=== PATIENT | male | born 1980 | race Caucasian/White ===

== ENCOUNTER 2016-10-30 17:30 | Emergency (ER) | payer MEDICAID ==
[~2016-10-30] VITALS: Ht 185.4 cm; Wt 72.6 kg
[2016-10-30 19:35] VITALS: BP 146/91
[2016-10-30 19:45] LABS: Basophils # (auto) 0 uL; Basophils % (auto) 0.1 % (0.0-2.0); Eosinophils # (auto) 0.1 uL; Eosinophils % (auto) 0.9 % (0.0-7.0); Hematocrit 36.1 % (41.0-53.0); Hemoglobin 12.1 g/dL (13.5-17.5); Lymphocytes # (auto) 1.9 uL; Lymphocytes % (auto) 11.8 % (10.0-50.0); Mean Corpuscular Hemoglobin 27.8 pg (28.0-32.0); Mean Corpuscular Hgb Conc. 33.5 g/dL (32.0-36.0); Mean Platelet Volume 7.7 fL (7.4-10.4); Monocytes # (auto) 0.6 uL; Neutrophils # (auto) 13.1 uL; Neutrophils % (auto) 83.2 % (37.0-80.0); Platelet Count (auto) 513 10^3/uL (140-450); Red Cell Distribution Width 14.6 % (11.6-16.0); White Blood Cell 15.8 10^3/uL (4.4-10.8)
[2016-10-30 19:47] LABS: Albumin 4.1 g/dL (3.4-5.0); BUN/Creatinine Ratio 24.5; Calcium 9.2 mg/dL (8.5-10.1); Potassium 3.9 mmol/L (3.5-5.1)
[2016-10-30 19:49] LABS: Bilirubin, Total 0.5 mg/dL (0.2-1.0); Total Protein 8.4 g/dL (6.4-8.2)
[2016-10-30] MEDS ORDERED: KETOROLAC TROMETH 60MG/2ML VIAL IM ONE (20:30)
[2016-10-30] MEDS ORDERED: cefTRIAXone SOD 1,000 MG VL IM ONE (20:30)
== END 2016-10-30 21:53 | disposition home or self-care (01) ==
LOC: ER 17:33
DX: L03.031 Cellulitis of right toe (principal); D64.9 Anemia, unspecified
CPT/HCPCS: 36415; 73630; 80053; 83605; 85025; 87040; 96372; 99285; J0696; J1885

== ENCOUNTER 2017-03-27 21:04 | Emergency (ER) | payer MEDICAID ==
[~2017-03-27] VITALS: Ht 175.3 cm; Wt 72.6 kg
[2017-03-27 21:05] VITALS: BP 130/70
== END 2017-03-27 21:25 | disposition left against medical advice (07) ==
LOC: EDBD 21:04 → ER 21:11
DX: T40.1X1A Poisoning by heroin, accidental (unintentional), initial encounter (principal); Y92.89 Other specified places as the place of occurrence of the external cause; Z53.21 Procedure and treatment not carried out due to patient leaving prior to being seen by health care provider

== ENCOUNTER 2019-07-30 12:19 | Emergency (ER) | payer SELFPAY ==
[~2019-07-30] VITALS: Ht 185.4 cm; Wt 81.6 kg
[2019-07-30 13:19] LABS: Basophils # (auto) 0 uL; Basophils % (auto) 0.2 % (0.0-2.0); Eosinophils # (auto) 0 uL; Eosinophils % (auto) 0.1 % (0.0-7.0); Hemoglobin 9.6 g/dL (13.5-17.5)
[2019-07-30 13:22] LABS: Lymphocytes # (auto) 1.2 uL; Lymphocytes % (auto) 8.1 % (10.0-50.0); Mean Corpuscular Hemoglobin 23.9 pg (28.0-32.0); Mean Corpuscular Hgb Conc. 31.9 g/dL (32.0-36.0); Mean Corpuscular Volume 74.8 fL (80.0-100.0); Monocytes % (auto) 13.3 % (0.0-12.0); Neutrophils # (auto) 11.7 uL; Neutrophils % (auto) 78.3 % (37.0-80.0); Platelet Count (auto) 378 10^3/uL (140-450); Red Blood Cells 4.01 10^6/uL (4.5-5.90)
[2019-07-30 13:34] LABS: Albumin 4.1 g/dL (3.4-5.0); Anion Gap 9 (5-15); Blood Urea Nitrogen 43 mg/dL (7-18); Carbon Dioxide 27 mmol/L (21-32); Chloride 94 mmol/L (98-107); Potassium 3.7 mmol/L (3.5-5.1); Salicylate < 1.7 mg/dL (2.8-20.0); Sodium 130 mmol/L (136-145)
[2019-07-30 13:39] LABS: Alanine Aminotransferase 142 U/L (16-61); Alkaline Phosphatase 88 U/L (45-117); Aspartate Aminotransferase 59 U/L (15-37); Bilirubin, Total 0.5 mg/dL (0.2-1.0); Blood Alcohol < 3.0 mg/dL (0-5); GFR African American 52 mL/min; GFR Non-African American 43 mL/min; Glucose 123 mg/dL (74-106); Total Protein 8.5 g/dL (6.4-8.2)
[2019-07-30 13:46] LABS: Red Cell Distribution Width 20.7 % (11.8-14.3)
[2019-07-30 13:48] LABS: Acetaminophen < 2.0 ug/mL (10-30)
[2019-07-30] MEDS ORDERED: SODIUM CHLORIDE 0.9% 1,000 ML IVB ONE (16:39)
[2019-07-30 18:07] LABS: Blood Alcohol < 3.0 mg/dL (0-5)
[2019-07-30 19:44] LABS: Urine Bacteria NONE SEEN /hpf (None Seen); Urine Blood Negative /uL (Negative); Urine Specific Gravity 1.015 (1.001-1.035); Urine WBC <1 /hpf (0 - 3)
[2019-07-30 20:01] LABS: Alcohol, Urine < 3.0 mg/dL (0-5); Amphetamine Screen, Urine POSITIVE (NEGATIVE); Barbiturate Scree,Urine NEGATIVE (NEGATIVE); Benzodiazephine Screen, Urine NEGATIVE (NEGATIVE); Cannabinoid Screen, Urine POSITIVE (NEGATIVE); Cocaine Screen, Urine NEGATIVE (NEGATIVE); Phencyclidine Screen, Urine NEGATIVE (NEGATIVE)
[2019-07-30 20:08] LABS: Opiate Scree,Urine POSITIVE (NEGATIVE)
[2019-07-31 02:07] VITALS: BP 99/54
== END 2019-07-31 03:48 | disposition home or self-care (01) ==
LOC: EDBD 12:19 → ER 12:21
DX: G92 Toxic encephalopathy (principal); D50.9 Iron deficiency anemia, unspecified; F15.10 Other stimulant abuse, uncomplicated; R94.5 Abnormal results of liver function studies; F12.10 Cannabis abuse, uncomplicated; F14.10 Cocaine abuse, uncomplicated
CPT/HCPCS: 36415; 70450; 80053; 80307; 80320; 80329; 81001; 83735; 85025; 93005

== ENCOUNTER → 2019-08-04 | Emergency (ER) | payer SELFPAY ==
[~2019-08-04] VITALS: Ht 182.9 cm; Wt 77.1 kg
[2019-08-04 20:00] VITALS: BP 131/77
== END | disposition left against medical advice (07) ==
LOC: EDUNIT# 19:41 → ER 19:54 → EDBD 19:54
DX: R41.82 Altered mental status, unspecified (principal); F12.10 Cannabis abuse, uncomplicated; F15.10 Other stimulant abuse, uncomplicated; F17.210 Nicotine dependence, cigarettes, uncomplicated; Z59.0 Homelessness; Z53.29 Procedure and treatment not carried out because of patient's decision for other reasons

== ENCOUNTER → 2019-08-23 | Emergency (ER) | payer SELFPAY ==
[~2019-08-23] VITALS: Ht 182.9 cm; Wt 76.7 kg
[2019-08-23 04:55] VITALS: BP 133/83
[2019-08-23 05:47] LABS: Urine Bacteria FEW /hpf (None Seen); Urine Blood Negative /uL (Negative); Urine Hyaline Cast MOD /lpf (0 - 2); Urine Mucus FEW (None Seen); Urine Specific Gravity 1.028 (1.001-1.035); Urine Sperm PRESENT /hpf (None Seen); Urine WBC 9 /hpf (0 - 3)
[2019-08-23 05:52] LABS: Salicylate 1.9 mg/dL (2.8-20.0)
[2019-08-23 05:54] LABS: Basophils # (auto) 0 10 ^3/uL (0-0.2); Basophils % (auto) 0.3 % (0.0-2.0); Hematocrit 31.3 % (41.0-53.0); Hemoglobin 9.8 g/dL (13.5-17.5); INR 1.01 (0.9-1.15); Lymphocytes # (auto) 1.5 10 ^3/uL (0.4-5.4); Lymphocytes % (auto) 10.8 % (10.0-50.0); Mean Corpuscular Hemoglobin 22.7 pg (28.0-32.0); Mean Corpuscular Hgb Conc. 31.2 g/dL (32.0-36.0); Mean Corpuscular Volume 72.8 fL (80.0-100.0); Monocytes % (auto) 6.9 % (0.0-12.0); Partial Thromboplastin Time 22.3 sec (23.64-32.05)
[2019-08-23 05:55] LABS: Chloride 106 mmol/L (98-107); Eosinophils # (auto) 0.2 10 ^3/uL (0-0.8); Eosinophils % (auto) 1.1 % (0.0-7.0); Neutrophils # (auto) 11.3 10 ^3/uL (1.6-8.6); Neutrophils % (auto) 80.9 % (37.0-80.0); Platelet Count (auto) 660 10^3/uL (140-450); Potassium 3.6 mmol/L (3.5-5.1); Red Blood Cells 4.29 10^6/uL (4.5-5.90); Sodium 135 mmol/L (136-145)
[2019-08-23 05:59] LABS: Acetaminophen < 2.0 ug/mL (10-30)
[2019-08-23 06:00] LABS: Red Cell Distribution Width 20.5 % (11.8-14.3)
[2019-08-23 06:05] LABS: Amphetamine Screen, Urine POSITIVE (NEGATIVE); Barbiturate Scree,Urine NEGATIVE (NEGATIVE); Benzodiazephine Screen, Urine NEGATIVE (NEGATIVE); Cocaine Screen, Urine NEGATIVE (NEGATIVE)
[2019-08-23 06:06] LABS: Alanine Aminotransferase 77 U/L (16-61); Albumin 3.7 g/dL (3.4-5.0); Alkaline Phosphatase 75 U/L (45-117); Anion Gap 9 (5-15); Aspartate Aminotransferase 42 U/L (15-37); BUN/Creatinine Ratio 12.6; Bilirubin, Total 0.3 mg/dL (0.2-1.0); Blood Urea Nitrogen 13 mg/dL (7-18); Calcium 8.9 mg/dL (8.5-10.1); Carbon Dioxide 20 mmol/L (21-32); GFR African American 104 mL/min; GFR Non-African American 86 mL/min; Glucose 156 mg/dL (74-106); Total Protein 8.2 g/dL (6.4-8.2)
[2019-08-23 06:14] LABS: Alcohol, Urine < 3.0 mg/dL (0-5); Cannabinoid Screen, Urine POSITIVE (NEGATIVE); Opiate Scree,Urine POSITIVE (NEGATIVE); Phencyclidine Screen, Urine NEGATIVE (NEGATIVE)
== END | disposition left against medical advice (07) ==
LOC: EDUNIT# 04:21 → ER 04:31 → EDBD 04:31
DX: R41.82 Altered mental status, unspecified (principal); F41.9 Anxiety disorder, unspecified; F17.210 Nicotine dependence, cigarettes, uncomplicated; F12.10 Cannabis abuse, uncomplicated; F15.10 Other stimulant abuse, uncomplicated; F14.10 Cocaine abuse, uncomplicated; Z59.0 Homelessness
CPT/HCPCS: 36415; 71045; 80053; 80307; 80329; 81001; 83880; 84484; 85025; 85610; 85730; 93005

== ENCOUNTER 2019-10-13 20:01 | Emergency (ER) | payer SELFPAY ==
[~2019-10-13] VITALS: Ht 182.9 cm; Wt 79.4 kg
[2019-10-13 23:09] VITALS: BP 143/93
== END 2019-10-13 23:29 | disposition home or self-care (01) ==
LOC: ER 20:01
DX: L02.01 Cutaneous abscess of face (principal); F17.210 Nicotine dependence, cigarettes, uncomplicated
CPT/HCPCS: 87040

== ENCOUNTER 2022-02-16 12:52 | Emergency (ER) | payer MEDICAID ==
[~2022-02-16] VITALS: Ht 182.9 cm; Wt 77.3 kg
[2022-02-16] MEDS ORDERED: CLINDAMYCIN 900MG IV 50 ML IV ONE (14:30)
[2022-02-16] MEDS ORDERED: cefTRIAXone 1GM/50ML D5W 50 ML IV ONE (14:30)
[2022-02-16] MEDS ORDERED: SODIUM CHLORIDE 0.9% 1,000 ML IV ONE (14:30)
[2022-02-16] MEDS ORDERED: TETANUS-DIPTH-ACEL PERTUSSIS 0.5ML SYR Tdap IM ONE (14:30)
[2022-02-16 15:23] VITALS: BP 135/78
[2022-02-16] MEDS ORDERED: CEPH-510 PO (16:14)
[2022-02-16] MEDS ORDERED: CLIN300C8 PO (16:14)
[2022-02-16] MEDS ORDERED: ACET-1158 PO (16:14)
== END 2022-02-16 16:54 | disposition home or self-care (01) ==
LOC: ER 12:52
DX: L03.114 Cellulitis of left upper limb (principal); F15.10 Other stimulant abuse, uncomplicated; F17.210 Nicotine dependence, cigarettes, uncomplicated; X58.XXXA Exposure to other specified factors, initial encounter; Y93.89 Activity, other specified; Y92.89 Other specified places as the place of occurrence of the external cause; Y99.8 Other external cause status
CPT/HCPCS: 73130; 90471; 90715; 96365; 96368; 99284; J0696; J3490; J7030

== ENCOUNTER 2022-07-26 21:25 | Inpatient (IN) | payer MEDICAID ==
[~2022-07-26] VITALS: Ht 180.3 cm; Wt 81.7 kg
[~2022-07-26 21:25] MED LIST: ACET-1158 PO; CEPH-510 PO; CLIN300C8 PO
[2022-07-26 22:26] LABS: Basophils # (auto) 0.1 10 ^3/uL (0-0.2); Basophils % (auto) 0.4 % (0.0-2.0); Eosinophils # (auto) 0 10 ^3/uL (0-0.8); Eosinophils % (auto) 0.2 % (0.0-7.0); Hematocrit 41.1 % (41.0-53.0); Lymphocytes # (auto) 1.5 10 ^3/uL (0.4-5.4); Lymphocytes % (auto) 7.3 % (10.0-50.0); Mean Corpuscular Hemoglobin 28.9 pg (28.0-32.0); Mean Corpuscular Hgb Conc. 33.9 g/dL (32.0-36.0); Mean Corpuscular Volume 85.1 fL (80.0-100.0); Monocytes # (auto) 1.1 10 ^3/uL (0-1.3); Monocytes % (auto) 5.2 % (0.0-12.0); Neutrophils # (auto) 17.5 10 ^3/uL (1.6-8.6); Neutrophils % (auto) 86.9 % (37.0-80.0); Red Blood Cells 4.83 10^6/uL (4.5-5.90); Red Cell Distribution Width 15.3 % (11.8-14.3); White Blood Cell 20.2 10^3/uL (4.4-10.8)
[2022-07-26 22:47] LABS: Anion Gap 1 (5-15); Blood Urea Nitrogen 21 mg/dL (7-18); Calcium 9.1 mg/dL (8.5-10.1); Carbon Dioxide 28 mmol/L (21-32); Chloride 107 mmol/L (98-107); Glucose 138 mg/dL (74-106); Magnesium 2.5 mg/dL (1.6-2.6); Sodium 136 mmol/L (136-145)
[2022-07-26 22:50] LABS: Acetaminophen < 2.0 ug/mL (10-30); BUN/Creatinine Ratio 16.3; Blood Alcohol < 3.0 mg/dL (0-5); GFR African American 79 mL/min; GFR Non-African American 65 mL/min; Salicylate < 1.7 mg/dL (2.8-20.0)
[2022-07-26 23:01] LABS: Potassium 6.4 mmol/L (3.5-5.1)
[2022-07-26 23:02] LABS: INR 0.94 (0.9-1.15); Partial Thromboplastin Time 25.5 sec (24.6-33.4)
[2022-07-26 23:04] LABS: Alanine Aminotransferase 49 U/L (16-61); Alkaline Phosphatase 71 U/L (45-117); Aspartate Aminotransferase 22 U/L (15-37); Bilirubin, Total 0.2 mg/dL (0.2-1.0); Total Protein 8.2 g/dL (6.4-8.2)
[2022-07-27] MEDS ORDERED: CALCIUM GLUC 1,000mg/50ml-NS 50 ML IV ONE (00:45)
[2022-07-27] MEDS ORDERED: SODIUM CHLORIDE 0.9% 1,000 ML IV ONE (00:45)
[2022-07-27] MEDS ORDERED: DEXTROSE (50%) 50ML SYRG IV ONE (00:45)
[2022-07-27] MEDS ORDERED: InsuLIN REG 1unit/0.01ml Soln (100units/ml) IV ONE (00:45)
[2022-07-27 05:25] LABS: Urine Blood Negative /uL (Negative); Urine Specific Gravity 1.021 (1.001-1.035)
[2022-07-27 05:42] LABS: Alcohol, Urine < 3.0 mg/dL (0-10); Amphetamine Screen, Urine POSITIVE (NEGATIVE); Barbiturate Scree,Urine NEGATIVE (NEGATIVE); Benzodiazephine Screen, Urine NEGATIVE (NEGATIVE); Cannabinoid Screen, Urine POSITIVE (NEGATIVE); Cocaine Screen, Urine NEGATIVE (NEGATIVE); Opiate Scree,Urine NEGATIVE (NEGATIVE)
[2022-07-27 05:50] LABS: Phencyclidine Screen, Urine NEGATIVE (NEGATIVE)
[2022-07-27 10:35] LABS: Basophils # (auto) 0.1 10 ^3/uL (0-0.2); Eosinophils # (auto) 0.1 10 ^3/uL (0-0.8); Hematocrit 35.6 % (41.0-53.0); Hemoglobin 11.9 g/dL (13.5-17.5); Lymphocytes # (auto) 2.4 10 ^3/uL (0.4-5.4); Mean Corpuscular Hemoglobin 28.1 pg (28.0-32.0); Mean Corpuscular Hgb Conc. 33.3 g/dL (32.0-36.0); Mean Corpuscular Volume 84.4 fL (80.0-100.0); Monocytes # (auto) 0.6 10 ^3/uL (0-1.3); Monocytes % (auto) 6.1 % (0.0-12.0); Neutrophils # (auto) 6.7 10 ^3/uL (1.6-8.6); Neutrophils % (auto) 67.9 % (37.0-80.0); Nucleated Red Blood Cells % 0.1 %; Red Blood Cells 4.22 10^6/uL (4.5-5.90); Red Cell Distribution Width 15.4 % (11.8-14.3); White Blood Cell 9.8 10^3/uL (4.4-10.8)
[2022-07-27] MEDS ORDERED: MORPHINE SULFATE INJ 2 MG/ml SYRG IV PRN (10:45)
[2022-07-27] MEDS ORDERED: ONDANSETRON HCL 4 MG/2 ML VIAL IV PRN (10:45)
[2022-07-27] MEDS ORDERED: NITROGLYCERIN 0.4 MG SL TAB SL PRN (10:45)
[2022-07-27 11:19] LABS: Potassium 4.2 mmol/L (3.5-5.1)
[2022-07-27 11:25] LABS: Albumin 3.3 g/dL (3.4-5.0); BUN/Creatinine Ratio 24.4; Bilirubin, Total 0.4 mg/dL (0.2-1.0); Calcium 8.4 mg/dL (8.5-10.1); Total Protein 6.4 g/dL (6.4-8.2)
[2022-07-27] MEDS: SODIUM CHLORIDE 0.9% 1,000 ML IV SCH ×2 (11:30→18:10)
[2022-07-27] MEDS ORDERED: NICOTINE 7MG/24HR TOPICAL PATCH TD ONE (11:45)
[2022-07-27] MEDS ORDERED: PANTOPRAZOLE 40 MG/10 ML VIAL INJ IV ONE (11:45)
[2022-07-27 12:20] LABS: Cholesterol 95 mg/dL (< 200); HDL Cholesterol 65 mg/dL (40-59); LDL Cholesterol 33 mg/dL (< 100); Triglycerides 21 mg/dL (< 150)
[2022-07-27] MEDS ORDERED: ACETAMINOPHEN 500 MG TAB PO ONE (19:45)
[2022-07-28] MEDS: SODIUM CHLORIDE 0.9% 1,000 ML IV SCH ×2 (00:46→07:43)
[2022-07-28 07:31] LABS: Basophils # (auto) 0.1 10 ^3/uL (0-0.2); Basophils % (auto) 0.9 % (0.0-2.0); Eosinophils # (auto) 0.1 10 ^3/uL (0-0.8); Eosinophils % (auto) 1.6 % (0.0-7.0); Hematocrit 35.7 % (41.0-53.0); Hemoglobin 12.3 g/dL (13.5-17.5); Lymphocytes # (auto) 2.5 10 ^3/uL (0.4-5.4); Lymphocytes % (auto) 30.7 % (10.0-50.0); Mean Corpuscular Hemoglobin 28.7 pg (28.0-32.0); Mean Corpuscular Hgb Conc. 34.5 g/dL (32.0-36.0); Mean Corpuscular Volume 83.2 fL (80.0-100.0); Monocytes # (auto) 0.6 10 ^3/uL (0-1.3); Neutrophils # (auto) 4.9 10 ^3/uL (1.6-8.6); Neutrophils % (auto) 59.8 % (37.0-80.0); Nucleated Red Blood Cells % 0.1 %; Red Blood Cells 4.29 10^6/uL (4.5-5.90); White Blood Cell 8.1 10^3/uL (4.4-10.8)
[2022-07-28 07:32] LABS: Calcium 8.7 mg/dL (8.5-10.1); Potassium 4.7 mmol/L (3.5-5.1)
[2022-07-28 07:38] LABS: Albumin 3.4 g/dL (3.4-5.0); BUN/Creatinine Ratio 18.3; Bilirubin, Total 0.5 mg/dL (0.2-1.0); Total Protein 6.5 g/dL (6.4-8.2)
[2022-07-28] MEDS ORDERED: PANTOPRAZOLE 40 MG/10 ML VIAL INJ IV SCH (10:00)
[2022-07-28] MEDS ORDERED: NICOTINE 7MG/24HR TOPICAL PATCH TD SCH (10:00)
[2022-07-28] MEDS ORDERED: ENOXAPARIN SOD 40 MG/0.4 ML SYRINGE SC SCH (10:00)
[2022-07-28 13:20] VITALS: BP 133/88
== END 2022-07-28 18:30 | disposition home or self-care (01) | DRG 812 ==
LOC: EDUNIT# 21:25 → EDBD 21:25 → ER 21:32 → TELE 07-27 10:40 → TELE-E-ADS 07-28 12:06
PROVIDERS: ADMIT Registered Nurse; ATTEND Hospitalist
DX: T40.711A Poisoning by cannabis, accidental (unintentional), initial encounter (principal); N17.9 Acute kidney failure, unspecified; D72.829 Elevated white blood cell count, unspecified; Z20.822 Contact with and (suspected) exposure to COVID-19; E87.5 Hyperkalemia; F15.10 Other stimulant abuse, uncomplicated; T40.411A Poisoning by fentanyl or fentanyl analogs, accidental (unintentional), initial encounter; Y92.89 Other specified places as the place of occurrence of the external cause; Z72.0 Tobacco use; Z71.6 Tobacco abuse counseling
CPT/HCPCS: 36415; 71045; 80053; 80061; 80307; 80320; 80329; 81003; 83036; 83735; 84443; 84484; 85025; 85610; 85730; 87426; 87804; 93005; 93306; 96365; 96375; 99291; C9113; G0378; J1815

== ENCOUNTER 2024-04-06 10:21 | Inpatient (IN) | payer MEDICAID ==
[~2024-04-06] VITALS: Ht 182.9 cm; Wt 72.8 kg
--- NOTE | 2024-04-06 10:49 | ED.PDOC ---
History of Present Illness(SKN HPI Comments HPI: Poor Historian. 43 y.o male presents to the ED for an evaluation of right hand pain associated with swelling and redness that started 2 days ago. Patient reports pain is loca bianca to the dorsal side of his right hand and states some pus discharge when it first presented. Patient reports swelling has increased today and is unable to take his watch off his right wrist. Patient placed Neosporin on the wound site today. He denies any fever, chills, bloody discharge, possible foreign object. Patient reports it was a cut before it started to swell up but is unsure where he cut himself. Patient admits to methamphetamine and tobacco use. Vital signs: BP: 127/92 HR: 80 Temp: SPO2: 100% RA RR: 17 Patient denies any allergies Past medical history: Methamphetamine, alcohol and tobacco (cigarette) use. Past surgical history: Denies REVIEW OF SYSTEMS: CONSTITUTIONAL: Denies acute: fever, diaphoresis, chills, generalized weakness. HEAD: Denies acute: headache, photophobia Eyes: Denies acute: Double vision, vision loss, eye pain, eye discharge. EARS: Denies acute: tinnitus, hearing loss, ear discharge, ear pain, THROAT: Denies acute: sore throat, swelling, difficulty swallowing , pain with swallowing, change in voice. NECK: Denies acute: neck pain, neck swelling, stiff neck. HEART: Denies acute : chest pain, palpitations, LUNGS: Denies acute: SOB, wheezing, cough, hemoptysis ABDOMEN: Denies acute: abdominal pain, Nausea, Vomiting, diarrhea, melena , hematemesis, hematochezia SKIN: Denies acute: itchiness. EXTREMITIES: Denies acute: calf pain, numbness, tingling, weakness, Denies acute: Low back pain. Neuro: Denies acute: focal neurological deficit, motor or sensory focal neurological deficit, tremors, seizure like activity, confusion, dizziness, change in mental status, loss of bowel or bladder function, cauda equina like symptoms. : Denies acute: dysuria, hematuria, flank pain, increase in urinary frequency. PSYCH: Denies acute: hallucination, suicidal ideation, homicidal ideation. PHYSICAL EXAM: General: no acute distress, awake and alert. Head: normocephalic, atraumatic. Neck: supple, trachea is midline, no swelling. Throat: Normal phonation. Eyes:, no erythema, no purulent discharge, no proptosis, no icterus. Heart: regular rate, regular rhythm, no significant murmur appreciated. Lungs: no apparent respiratory distress, Able to speak in full sentences. No wheezing, no rhonchi, no crackles. No stridors Clear to auscultation bilaterally. Abdomen: non tender to palpation, non distended, soft, no guarding, no rebound, + bowel sounds. Neuro: Awake, Alert, oriented to name, self, situation, follows commands GCS=15. Speech is normal. Skin: no petechia, no purpura, no cyanosis, non-pale, not jaundice. Lower extremities: --no - Pitting edema no deformity, no focal swelling, no calf TTP. Makes eye contact. moves all four extremities. Face: no apparent facial droop. Ambulating in the ED independently. Evaluation of the right hand reveals right hand swelling and erythema and tenderness to palpation of the dorsum of the right hand and the erythema extends up towards his wrist. Radial pulses palpable. Patient able to oppose all his digits with his thumb. Patient denies any pain on the palmar side of his hand. Patient is neurovascularly intact in the affected extremity. Time Seen by MD: 10:41 Primary Care Provider: CORBY History of Present Illness: Nurses Notes, Medications, Allergies Allergies: Coded Allergies: NO KNOWN ALLERGIES (Unverified , 11/10/11) Home Meds No Active Prescriptions or Reported Meds Information Source: Patient Mode of Arrival: Ambulatory Severity: Moderate Timing: Days (2) Past Medical History PAST MEDICAL HISTORY: Denies Surgical History: Denies all surgeries Family History Family History: Reviewed,noncontributory to illness Social History Smoker: Cigarettes, Less Than 1 Pack/Day Alcohol: Occasionally Drugs: Methamphetamine Lives In: Home Was a procedure done? Was a procedure done?: No Differential Diagnosis (INTG) Differential Diagnosis: Abscess, Cellulitis, Erythema multiforme, Erysipelas, Gangrene, Molluscum contagiosum, Osteomyelitis Differential Diagnosis: Contusion (Necrotizing fasciitis,), Hematoma, Neurov ascular Injury Differential Diagnosis: Puncture Wound X-Ray, Labs, Meds, VS Vital Signs Date Time Temp Pulse Resp B/P (MAP) Pulse Ox O2 Delivery O2 Flow Rate FiO2 04/06/24 14:00 68 18 122/81 (95) 99 04/06/24 13:22 132/80 04/06/24 13:00 63 18 132/80 (97) 99 04/06/24 12:38 74 18 99 Room Air* 0 21 04/06/24 12:00 59 18 118/64 (82) 99 04/06/24 10:41 97.6 80 17 127/92 (104) 100 04/06/24 10:33 98.7 68 18 120/54 (76) 99 98.7 Lab Test 04/06/24 10:55 Range/Units White Blood Count 12.1 H 4.4-10.8 10^3/uL Red Blood Count 4.69 4.5-5.90 10^6/uL Hemoglobin 13.6 13.5-17.5 g/dL Hematocrit 40.5 L 41.0-53.0 % Mean Corpuscular Volume 86.3 80.0-100.0 fL Mean Corpuscular Hemoglobin 29.0 28.0-32.0 pg Mean Corpuscular Hemoglobin Concent 33.6 32.0-36.0 g/dL Red Cell Distribution Width 13.9 11.8-14.3 % Platelet Count 379 140-450 10^3/uL Mean Platelet Volume 7.1 6.9-10.8 fL Neutrophils (%) (Auto) 76.9 37.0-80.0 % Lymphocytes (%) (Auto) 13.0 10.0-50.0 % Monocytes (%) (Auto) 8.1 0.0-12.0 % Eosinophils (%) (Auto) 1.7 0.0-7.0 % Basophils (%) (Auto) 0.3 0.0-2.0 % Neutrophils # (Auto) 9.3 H 1.6-8.6 10 ^3/uL Lymphocytes # (Auto) 1.6 0.4-5.4 10 ^3/uL Monocytes # (Auto) 1.0 0-1.3 10 ^3/uL Eosinophils # (Auto) 0.2 0-0.8 10 ^3/uL Basophils # (Auto) 0 0-0.2 10 ^3/uL Nucleated Red Blood Cells 0.0 % Erythrocyte Sedimentation Rate 15 0-20 mm/hr Sodium Level 136 136-145 mmol/L Potassium Level 4.0 3.5-5.1 mmol/L Chloride Level 102 98-107 mmol/L Carbon Dioxide Level 31 20-31 mmol/L Anion Gap 3 L 5-15 Blood Urea Nitrogen 9 9-23 mg/dL Creatinine 0.79 0.700-1.30 mg/dL Glomerular Filtration Rate Calc 113 >90 mL/min BUN/Creatinine Ratio 11.4 10.0-20.0 Serum Glucose 74 74-106 mg/dL Lactic Acid Level 0.6 0.4-2.0 mmol/L Calcium Level 9.6 8.7-10.4 mg/dL Total Bilirubin 0.5 0.2-1.0 mg/dL Aspartate Amino Transferase (AST) 19 13-40 U/L Alanine Aminotransferase (ALT) 31 7-40 U/L Alkaline Phosphatase 78 46-116 U/L C-Reactive Protein High Sensitivity 3.23 H <1.0 mg/dL Total Protein 7.5 5.7-8.2 g/dL Albumin 4.5 3.2-4.8 g/dL Current Medications Medications (Trade) Dose Ordered Sig/Becky Route Start Time Stop Time Status Last Admin Piperacillin Sod/ Tazobactam Sod 100 ml @ 33.333 mls/ hr ONCE ONCE IV 04/06/24 11:00 04/06/24 13:59 DC 04/06/24 12:21 Vancomycin HCl 300 ml @ 200 mls/hr ONCE ONCE IV 04/06/24 11:15 04/06/24 12:44 DC 04/06/24 12:21 Fentanyl Citrate 100 mcg ONCE ONCE IV 04/06/24 13:15 04/06/24 13:16 CO 04/06/24 13:22 [place] [id number] Ph: [phone] DIAGNOSTIC IMAGING Diagnostic Imaging Report : [id number] Signed PATIENT: CARMEN REYES ACCT: [id number] UNIT: [id number] : 1980 LOC: ER ROOM / BED: / AGE / SEX: 43 / M ADM STATUS: REG ER SERVICE 1047 ORDERING PHYSICIAN: LEROY FLETCHER DO PROCEDURE(s): RUDVT - Rt Upper DVT REASON: hand swelling ORDER NUMBER(s): [id number], ACCESSION NUMBER(s): [id number] Right UPPER EXTREMITY VENOUS DOPPLER CLINICAL HISTORY: hand swelling TECHNIQUE: Upper extremity venous Doppler study was performed. Comparison: None FINDINGS: Right internal jugular, subclavian, axillary, brachial, basilic, cephalic, radial and ulnar veins appear patent with normal augmentation, phasicity, compressibility and color-flow. IMPRESSION: 1. No sonographic evidence of DVT in the right upper extremity. HS:Y ATED BY: BAL GONZALEZ MD DICTATED DATE/TIME: 04/06/241408 SIGNED BY: BAL GONZALEZ MD SIGNED DATE/TIME: 04/06/241408 CC: [place] [id number] Ph: [phone] DIAGNOSTIC IMAGING Diagnostic Imaging Report : [id number] Signed PATIENT: CARMEN REYES ACCT: [id number] UNIT: [id number] : 1980 LOC: ER ROOM / BED: / AGE / SEX: 43 / M ADM STATUS: REG ER SERVICE 1102 ORDERING PHYSICIAN: LEROY FLETCHER DO PROCEDURE(s): RUECT - RT UPPER EXTREMITY WITH CONT REASON: HAND SWELLING R/O ABCESS ORDER NUMBER(s): [id number], ACCESSION NUMBER(s): [id number] INDICATION: 43 years old, Male; HAND SWELLING R/O ABCESS. COMPARISON: None TECHNIQUE: CT of the right upper extremity performed with intravenous contrast using 100 mL Omnipaque. Coronal and sagittal reformatted images are submitted. CONTRAST: None Radiation Dose Information: CTDI volume is 7.75 mGy. Dose-length product is 376.08 mGy*cm FINDINGS: No evidence of acute fracture or dislocation. No evidence of cortical destruction or periosteal reaction. Joint spaces are maintained. Benign cysts in the hamate and the triquetrum. Dorsal soft tissue swelling. No fluid collection. IMPRESSION: 1. Diffuse soft tissue swelling, which may reflect cellulitis. No fluid collection. 2. No CT evidence of osteomyelitis. All CT scans at this medical facility are performed using dose modulation techniques as appropriate to a performed exam including the following: Automated exposure control was utilized; adjustment of the MA and/or KV according to patient size; and use of iterative reconstruction technique. ATED BY: ERIC JACOBSEN MD DICTATED DATE/TIME: 04/06/241248 SIGNED BY: ERIC JACOBSEN MD SIGNED DATE/TIME: 04/06/241248 CC: Time of 1ST Reevaluation: 10:54 Reevaluation 1ST: Unchanged Patient Education/Counseling: Diagnosis, Treatment Family Education/Counseling: No Family Present Comments Patient presented with the above HPI.---hand cellulitis/swelling---workup was initiated. patient was found with the above mentioned diagnosis. Patient was given: Patient was given vancomycin and Zosyn and fluids and pain medications Patient ED course and VS have been stabilized. Patient has been reassessed in the ED and remained in a stable condition. Pertinent incidental findings were discussed with the patient and/or family. Patient/family voices understanding and is agreeable with plan. Patient has been observed in the ED adequate length of time to insure improvement/stability. patient was admitted to the medicine team for further evaluation and treatment of their presentation. All the reports of any imaging studies that were ordered by myself were reviewed by myself. Departure 1 Departure Time of Disposition: 12:58 Impression: Primary Impression: Cellulitis of right hand Disposition: ADMITTED INPATIENT Admit to: Tele Condition: Guarded e-Prescriptions No Active Prescriptions or Reported Meds Discharged With: Self Critical Care Note Critical Care Time?: Yes (35 min-critical care time only) I personally scribed for LEROY FLETCHER DO ([email or web address]) on 04/06/24 at 10:49. Electronically submitted by Connie Bales ([facility]). I personally scribed for LEROY FLETCHER DO ([email or web address]) on 04/06/24 at 11:01. Electronically submitted by Connie Bales ([facility]). I personally scribed for LEROY FLETCHER DO ([email or web address]) on 04/06/24 at 14:28. Electronically submitted by Connie Bales ([facility]). I personally scribed for LEROY FLETCHER DO ([email or web address]) on 04/06/24 at 14:32. Electronically submitted by Connie Bales ([facility]). LEROY FLETCHER DO Apr 06, 2024 10:49
[2024-04-06] MEDS ORDERED: VANCOMYCIN PER PHARMACY 0 MG IV SCH (11:00)
[2024-04-06 11:20] LABS: Basophils # (auto) 0 10 ^3/uL (0-0.2); Basophils % (auto) 0.3 % (0.0-2.0); Eosinophils # (auto) 0.2 10 ^3/uL (0-0.8); Eosinophils % (auto) 1.7 % (0.0-7.0); Hematocrit 40.5 % (41.0-53.0); Hemoglobin 13.6 g/dL (13.5-17.5); Lymphocytes # (auto) 1.6 10 ^3/uL (0.4-5.4); Mean Corpuscular Hgb Conc. 33.6 g/dL (32.0-36.0); Mean Corpuscular Volume 86.3 fL (80.0-100.0); Monocytes % (auto) 8.1 % (0.0-12.0); Neutrophils # (auto) 9.3 10 ^3/uL (1.6-8.6); Neutrophils % (auto) 76.9 % (37.0-80.0); Platelet Count (auto) 379 10^3/uL (140-450); Red Blood Cells 4.69 10^6/uL (4.5-5.90); Red Cell Distribution Width 13.9 % (11.8-14.3); White Blood Cell 12.1 10^3/uL (4.4-10.8)
[2024-04-06 11:37] LABS: Alanine Aminotransferase 31 U/L (7-40); Albumin 4.5 g/dL (3.2-4.8); Alkaline Phosphatase 78 U/L (46-116); Anion Gap 3 (5-15); Aspartate Aminotransferase 19 U/L (13-40); BUN/Creatinine Ratio 11.4 (10.0-20.0); Blood Urea Nitrogen 9 mg/dL (9-23); Calcium 9.6 mg/dL (8.7-10.4); Carbon Dioxide 31 mmol/L (20-31); Chloride 102 mmol/L (98-107); Glucose 74 mg/dL (74-106); Sodium 136 mmol/L (136-145)
[2024-04-06 11:38] LABS: Bilirubin, Total 0.5 mg/dL (0.2-1.0); Total Protein 7.5 g/dL (5.7-8.2)
[2024-04-06 11:46] LABS: CRP High Sensitivity 3.23 mg/dL (<1.0)
[2024-04-06 12:12] LABS: Erythrocyte Sedimentation Rate 15 mm/hr (0-20)
[2024-04-06] MEDS: PIPERACILLIN-TAZOB 3.375GM 100 ML IV ONE (12:21)
[2024-04-06] MEDS: VANCOMYCIN 1.5GM/300ML 300 ML IV ONE (12:21)
[2024-04-06 12:38] VITALS: PULSE 74; RESP 18; O2SAT 99
--- NOTE | 2024-04-06 12:51 | DVH ---
INDICATION: 43 years old, Male; HAND SWELLING R/O ABCESS. COMPARISON: None TECHNIQUE: CT of the right upper extremity performed with intravenous contrast using 100 mL Omnipaqu e. Coronal and sagittal reformatted images are submitted. CONTRAST: None Radiation Dose Information: CTDI volume is 7.75 mGy. Dose-length product is 376.08 mGy*cm FINDINGS: No evidence of acute fracture or dislocation. No evidence of cortical destruction or periosteal reac tion. Joint spaces are maintained. Benign cysts in the hamate and the triquetrum. Dorsal soft tissue swelling. No fluid collection. IMPRESSION: 1. Diffuse soft tissue swelling, which may reflect cellulitis. No fluid collection. 2. No CT evidence of osteomyelitis. All CT scans at this medical facility are performed using dose modulation techniques as appropriate t o a performed exam including the following: Automated exposure control was utilized; adjustment of th e MA and/or KV according to patient size; and use of iterative reconstruction technique.
[2024-04-06] MEDS: IOHEXOL 300 MG/ML 100ML BOTTLE IJ ONE (13:12)
[2024-04-06] MEDS: fentaNYL CITRATE 100 MCG/2 ML VL IV ONE (13:22)
--- NOTE | 2024-04-06 14:11 | DVH ---
Right UPPER EXTREMITY VENOUS DOPPLER CLINICAL HISTORY: hand swelling TECHNIQUE: Upper extremity venous Doppler study was performed. Comparison: None FINDINGS: Right internal jugular, subclavian, axillary, brachial, basilic, cephalic, radial and ulnar veins cornel ear patent with normal augmentation, phasicity, compressibility and color-flow. IMPRESSION: 1. No sonographic evidence of DVT in the right upper extremity. HS:Y
[2024-04-06] MEDS ORDERED: NITROGLYCERIN 0.4 MG SL TAB SL PRN (14:45)
[2024-04-06] MEDS ORDERED: ACETAMINOPHEN 500 MG TAB PO PRN (14:45)
[2024-04-06] MEDS ORDERED: ONDANSETRON HCL 4 MG/2 ML VIAL IV PRN (14:45)
[2024-04-06] MEDS ORDERED: HYDROcodone-ACET 5/325MG TAB PO PRN (14:45)
[2024-04-06] MEDS ORDERED: MORPHINE SULFATE INJ 2 MG/ml SYRG IV PRN (14:45)
[2024-04-06] MEDS ORDERED: DOCUSATE SOD 100 MG CAP PO PRN (14:45)
--- NOTE | 2024-04-06 14:47 | DVHHP2 ---
History of Present Illness Reason for Visit: Right arm pain History of Present Illness The patient is a 43-year-old male, presenting to the emergency room with right arm pain and swelling. Apparently, the patient uses IV drug use, and has been injecting into his right hand. Patient denies having any fevers, chills, body aches. Patient continues to leave the emergency room to smoke outside. Significant history includes methamphetamine and tobacco use. Past Surgical History: None Smoke: 1 pack per day ALCOHOL: heavy Lives: Friends Domestic Violence: Neg Review of Systems Constitutional: Yes: Weakness Eyes: No: Pain, Vision change, Conjunctivae inflammation, Eyelid inflammation, Other, Redness ENT: No: Ear pain, Ear discharge, Nose pain, Nose discharge, Nose congestion, Mouth pain, Mouth swelling, Throat pain, Throat swelling, Other Respiratory: No: Cough, Dry, Shortness of breath, SOB with excertion, Wheezing, Hemoptysis, Pleuritic Pain, Sputum, Wheezing, Other Gastrointestinal: No: Nausea, Vomiting, Abdominal Pain, Diarrhea, Constipation, Melena, Hematochezia, Other Genitourinary: No Dysuria, No Frequency, No Incontinence, No Hematuria, No Retention, No Other Musculoskeletal: other (Hand pain) Skin: No: Rash, Lesions, Jaundice, Bruising, Other Allergies: Coded Allergies: NO KNOWN ALLERGIES (Unverified , 11/10/11) Medications Current Medications Medications Dose Ordered Sig/Becky Route Start Time Stop Time Status Last Admin Dose Admin Vancomycin HCl 0 ml @ 0 mls/hr UD IV 04/06/24 11:00 Vancomycin HCl 200 ml @ 200 mls/hr Q8H IV 04/06/24 20:00 UNV Exam Vital Signs Vital Signs Date Time Temp Pulse Resp B/P (MAP) Pulse Ox O2 Delivery O2 Flow Rate FiO2 04/06/24 14:00 68 18 122/81 (95) 99 04/06/24 12:38 Room Air* 0 21 04/06/24 10:41 97.6 General Appearance: Alert, Oriented X3, Cooperative, mild distress HEENT: Atraumatic, PERRLA Respiratory: Clear to auscultation, Normal air movement Cardiovascular: Normal S1, Normal S2 Psych/Mental Status: Mental status NL, Mood NL Labs/Xrays Labs Test 04/06/24 10:55 Range/Units White Blood Count 12.1 H 4.4-10.8 10^3/uL Red Blood Count 4.69 4.5-5.90 10^6/uL Hemoglobin 13.6 13.5-17.5 g/dL Hematocrit 40.5 L 41.0-53.0 % Mean Corpuscular Volume 86.3 80.0-100.0 fL Mean Corpuscular Hemoglobin 29.0 28.0-32.0 pg Mean Corpuscular Hemoglobin Concent 33.6 32.0-36.0 g/dL Red Cell Distribution Width 13.9 11.8-14.3 % Platelet Count 379 140-450 10^3/uL Mean Platelet Volume 7.1 6.9-10.8 fL Neutrophils (%) (Auto) 76.9 37.0-80.0 % Lymphocytes (%) (Auto) 13.0 10.0-50.0 % Monocytes (%) (Auto) 8.1 0.0-12.0 % Eosinophils (%) (Auto) 1.7 0.0-7.0 % Basophils (%) (Auto) 0.3 0.0-2.0 % Neutrophils # (Auto) 9.3 H 1.6-8.6 10 ^3/uL Lymphocytes # (Auto) 1.6 0.4-5.4 10 ^3/uL Monocytes # (Auto) 1.0 0-1.3 10 ^3/uL Eosinophils # (Auto) 0.2 0-0.8 10 ^3/uL Basophils # (Auto) 0 0-0.2 10 ^3/uL Nucleated Red Blood Cells 0.0 % Erythrocyte Sedimentation Rate 15 0-20 mm/hr Sodium Level 136 136-145 mmol/L Potassium Level 4.0 3.5-5.1 mmol/L Chloride Level 102 98-107 mmol/L Carbon Dioxide Level 31 20-31 mmol/L Anion Gap 3 L 5-15 Blood Urea Nitrogen 9 9-23 mg/dL Creatinine 0.79 0.700-1.30 mg/dL Glomerular Filtration Rate Calc 113 >90 mL/min BUN/Creatinine Ratio 11.4 10.0-20.0 Serum Glucose 74 74-106 mg/dL Lactic Acid Level 0.6 0.4-2.0 mmol/L Calcium Level 9.6 8.7-10.4 mg/dL Total Bilirubin 0.5 0.2-1.0 mg/dL Aspartate Amino Transferase (AST) 19 13-40 U/L Alanine Aminotransferase (ALT) 31 7-40 U/L Alkaline Phosphatase 78 46-116 U/L C-Reactive Protein High Sensitivity 3.23 H <1.0 mg/dL Total Protein 7.5 5.7-8.2 g/dL Albumin 4.5 3.2-4.8 g/dL Assessment/Plan Assessment/Plan Impression: -probable sepsis -cellulitis right upper extremity -polysubstance abuse: Tobacco, methamphetamines -rule out endocarditis Plan: -admit to telemetry unit -IV antibiotic therapy: According around the Unasyn, vancomycin -UDS -PPI -Xanax p.r.n. withdrawal symptoms -pain management -echocardiogram to rule out endocarditis -repeat labs in a.m. Total time spent with patient discussing and formulating plan of care: 35 minutes. This medical document was created using an electronic medical record system with [employer] dictation system. Although this document has been carefully reviewed, there may still be some phonetic and typographical errors. These areas are purely typographical due to imperfections of the software programs, and do not reflect any compromise in the patient's medical care. Plan discussed with: Patient, Other (RN) My Orders Orders - DANIS BOWMAN BRANCH EXAMINER Procedure Category Date Status Time Ampicillin & PHA 04/06/24 Logged Sulbactam Sodium 14:45 Echo 2d Mode Cardiac US 04/06/24 Logged DOP 14:37 Morphine Sulfate PHA 04/06/24 Logged Injection 14:45 Hydrocodone-Acet PHA 04/06/24 Logged 5/325mg Tab ([place] 14:45 Acetaminophen Tablet PHA 04/06/24 Logged (Tylenol Tablet) 14:45 Ondansetron Hcl PHA 04/06/24 Logged (Zofran) 14:45 Docusate Sodium PHA 04/06/24 Transmitted Capsule (Colace 14:45 Admit ADMIT 04/06/24 Transmitted 14:37 Nitroglycerin PHA 04/06/24 Transmitted Sublingual (Ntrostat 14:45 Morphine Sulfate PHA 04/06/24 Logged Injection 14:45 Stat Ekg For Chest SAMIR 04/06/24 Transmitted Pain 14:37 Notify Md Of Changes SAMIR 04/06/24 Transmitted From Base 14:37 Railroad Crane Operator For SAMIR 04/06/24 Transmitted 24 Hours 14:37 Emergency Dysrhythmia SAMIR 04/06/24 Transmitted Protocol 14:37 Rhythm Strips Once SAMIR 04/06/24 Transmitted Every Shift 14:37 Oxygen By Nasal RT 04/06/24 Transmitted Cannula 14:37 Pantoprazole Tablet PHA 04/07/24 Logged (Protonix Tablet) 06:00 Drug Screen LAB 04/06/24 Logged 14:37 Date of Service: Apr 06, 2024 Billing Provider: DANIS BOWMAN NP Common Visit Codes: [id number] INP/OBS CARE (HIGH) DANIS BOWMAN NP Apr 06, 2024 14:47
[2024-04-06] MEDS: AMPICILLIN & SULBACTAM SODIUM 3 GM in SODIUM CHL 0.9% 100 ML IV SCH (15:38)
[2024-04-06 19:47] VITALS: PULSE 91; RESP 18; O2SAT 99
[2024-04-06] MEDS: VANCOMYCIN 1GM/200ML PREMIX 200 ML IV SCH (20:00)
[2024-04-06 21:29] VITALS: BP 128/83; PULSE 85; RESP 17; TEMP 98.2; O2SAT 95; O2SAT 99
[2024-04-06 21:40] VITALS: BP 128/83; PULSE 85; RESP 17; TEMP 98.2; O2SAT 99
[2024-04-07] VITALS (8 sets, daily range): BP systolic 107–127; BP diastolic 54–81; PULSE 67–90; RESP 16–20; TEMP 97.8–99.3; O2SAT 96–99
[2024-04-07] MEDS: PANTOPRAZOLE 40 MG TAB PO SCH (05:35)
[2024-04-07 07:05] LABS: Amphetamine Screen, Urine Pos (NEGATIVE)
[2024-04-07 07:06] LABS: Barbiturate Scree,Urine Neg (NEGATIVE); Benzodiazephine Screen, Urine Neg (NEGATIVE); Cocaine Screen, Urine Neg (NEGATIVE)
[2024-04-07 07:07] LABS: Cannabinoid Screen, Urine Neg (NEGATIVE); Opiate Scree,Urine Neg (NEGATIVE); Phencyclidine Screen, Urine Neg (NEGATIVE)
[2024-04-07] MEDS: MORPHINE SULFATE INJ 2 MG/ml SYRG IV PRN (10:06)
--- NOTE | 2024-04-07 12:19 | DVHPN2 ---
Subjective Patient continues mild pain to upper extremity. Reviewed: Care Plan, H&P, Labs Changes from previous H/P or p: No Changes General: Per HPI Objective Vitals Vital Signs Date Time Temp Pulse Resp B/P (MAP) Pulse Ox O2 Delivery O2 Flow Rate FiO2 04/07/24 10:06 74 20 127/81 04/07/24 09:00 98.8 96 98.8 04/06/24 21:29 Room Air* 0 21 Intake/Output Intake and Output 04/07/24 07:00 Intake Total 1220 ml Balance 1220 ml Intake Oral 120 ml IV Total 1100 ml # Voids 2 General Appearance: Alert, Oriented X3, Cooperative, mild distress HEENT: Atraumatic, PERRLA Lungs: Clear to auscultation, Normal air movement Cardiovascular: Normal S1, Normal S2 Abdomen: Normal bowel sounds, Soft, No tenderness, No hepatospenomegaly Musculoskeletal: Normal sensory function, Normal motor function Extremities: No clubbing, No cyanosis, Other (Severe swelling and tenderness to right upper extremity) Neuro: Normal gait, Normal speech Psych/Mental Status: Mental status NL, Mood NL Medications Current Medications Medications Dose Ordered Sig/Becky Route Start Time Stop Time Status Last Admin Dose Admin Vancomycin HCl 0 ml @ 0 mls/hr UD IV 04/06/24 11:00 Vancomycin HCl 200 ml @ 200 mls/hr Q8H IV 04/06/24 20:00 04/07/24 12:04 200 MLS/HR Ampicillin Sodium/ Sulbactam Sodium 3 gm/Sodium Chloride 100 ml @ 100 mls/hr Q6H IV 04/06/24 15:00 04/07/24 08:41 100 MLS/HR Morphine Sulfate 1 mg Q4HPRN PRN IV 04/06/24 14:45 04/07/24 10:06 1 MG Acetaminophen/ Hydrocodone Bitart 1 tab Q6HPRN PRN PO 04/06/24 14:45 Acetaminophen 500 mg Q8HP PRN PO 04/06/24 14:45 Ondansetron HCl 4 mg Q6HP PRN IV 04/06/24 14:45 Docusate Sodium 100 mg BID PRN PO 04/06/24 14:45 Nitroglycerin 0.4 mg Q5MINP PRN SL 04/06/24 14:45 Morphine Sulfate 2 mg Q30M PRN IV 04/06/24 14:45 Pantoprazole Sodium 40 mg DAILY@0600 PO 04/07/24 06:00 04/07/24 05:35 40 MG Laboratory Results Laboratory Tests 04/06/24 10:55 Labs and/or images reviewed: Labs reviewed by me, Image(s) reviewed by me Assessment/Plan Assessment/Plan Impression: -probable sepsis -cellulitis right upper extremity -polysubstance abuse: Tobacco, methamphetamines -rule out endocarditis Plan: Events: No events overnight. Persistent swelling to right upper extremity. Patient continues to ambulate around the hospital and on keeping his arm elevated. So -continue antibiotic therapy with Unasyn and vancomycin -UDS : Noted to be positive for amphetamines and fentanyl. Fentanyl provided hospital ER for pain relief. -PPI -Xanax p.r.n. withdrawal symptoms -pain management: [place] and p.r.n. morphine -echocardiogram to rule out endocarditis: Pending -repeat labs in a.m. Total time spent with patient discussing and formulating plan of care: 35 minutes. This medical document was created using an electronic medical record system with [employer] dictation system. Although this document has been carefully reviewed, there may still be some phonetic and typographical errors. These areas are purely typographical due to imperfections of the software programs, and do not reflect any compromise in the patient's medical care. Plan discussed with: Patient, Other (RN) My Orders Orders - DANIS BOWMAN SATELLITE PROJECT SITE MONITOR Procedure Category Date Status Time Ampicillin & PHA 04/06/24 In Process Sulbactam Sodium 15:00 Morphine Sulfate PHA 04/06/24 In Process Injection 14:45 Hydrocodone-Acet PHA 04/06/24 In Process 5/325mg Tab ([place] 14:45 Acetaminophen Tablet PHA 04/06/24 In Process (Tylenol Tablet) 14:45 Ondansetron Hcl PHA 04/06/24 In Process (Zofran) 14:45 Docusate Sodium PHA 04/06/24 In Process Capsule (Colace 14:45 Admit ADMIT 04/06/24 Transmitted 14:37 Nitroglycerin PHA 04/06/24 In Process Sublingual (Ntrostat 14:45 Morphine Sulfate PHA 04/06/24 In Process Injection 14:45 Stat Ekg For Chest SAMIR 04/06/24 In Process Pain 14:37 Notify Md Of Changes SAMIR 04/06/24 In Process From Base 14:37 Head Of Quality For [facility] 04/06/24 In Process 24 Hours 14:37 Emergency Dysrhythmia [facility] 04/06/24 In Process Protocol 14:37 Rhythm Strips Once [facility] 04/06/24 In Process Every Shift 14:37 Oxygen By Nasal RT 04/06/24 Transmitted Cannula 14:37 Pantoprazole Tablet PHA 04/07/24 In Process (Protonix Tablet) 06:00 Regular Diet DIET 04/06/24 Transmitted Dinner * Steel Fabricator CONS 04/06/24 Transmitted Consult 23:24 Education - Smoking [facility] 04/06/24 In Process Cessation 23:24 * Smoking Cessation CONS 04/06/24 Transmitted Consult 23:24 Hepatitis B Surface LAB 04/07/24 In Process Antigen 11:00 Basic Metabolic Panel LAB 04/08/24 Verified 04:00 Complete Blood Count LAB 04/08/24 Verified 04:00 Transfer Orders XFER 04/07/24 Verified 12:14 Date of Service: Apr 07, 2024 Billing Provider: DANIS BOWMAN NP Common Visit Codes: [id number] INP/OBS CARE(HIGH) DANIS BOWMAN NP Apr 07, 2024 12:19
--- NOTE | 2024-04-07 15:39 | DVHSR ---
APPROVED REPORT EXAM: Two-dimensional and M-mode echocardiogram with Doppler and color Doppler. Blood Pressure: 115/67 mmHg INDICATION IV drug use RISK FACTORS Height: 6', Weight: 156 DIMENSIONS LVDd5.0 (3.8-5.7cm)LA (2D)3.6 (1.9-4.0cm)Aortic Root (2.0-3.7cm) LVDs2.8 (2.5-4.0cm)LA (MM) (1.9-4.0cm)Aortic Cusp Exc (1.5-2.0cm) EF (%) 75.0 (55-70%)Rt. Atrium4.6 (1.9-4.0cm)Asc. Aorta cm IVSd0.9 (0.7-1.1cm)RV (D)3.7 (1.8-2.4cm) Mitral Valve MitralMitral Stenosis E wave0.59m/sMV Mean GR.mmHg A wave0.60m/sMV Peak GR.mmHg E/A ratio1.02D MVAcm2 DECEL [id number] 1/2 Timems Other Information Quality : Technically LimitedRhythm : Technically limited study due to body habitus. Conclusion Normal left ventricular size and dimension. Normal left ventricular systolic function estimated ejec tion fraction 70%. There is a grade 1 diastolic dysfunction. Normal right ventricular size and dimension. Normal right ventricular systolic function. Normal biatrial size and dimension. Normal aortic valve structure and function. Normal mitral valve structure and function. Normal tricuspid valve and function. The pulmonary valve is grossly normal. No pericardial effusion
[2024-04-08 05:00] VITALS: BP 129/70; PULSE 76; RESP 17; TEMP 98.7; O2SAT 96
[2024-04-08 06:59] LABS: Anion Gap 7 (5-15); Carbon Dioxide 24 mmol/L (20-31); Chloride 107 mmol/L (98-107); Sodium 138 mmol/L (136-145)
[2024-04-08 07:00] LABS: Calcium 9.4 mg/dL (8.7-10.4)
[2024-04-08 07:05] LABS: BUN/Creatinine Ratio 12.8 (10.0-20.0); Blood Urea Nitrogen 10 mg/dL (9-23); Glucose 106 mg/dL (74-106)
[2024-04-08 07:36] LABS: Basophils # (auto) 0.1 10 ^3/uL (0-0.2); Basophils % (auto) 0.6 % (0.0-2.0); Eosinophils # (auto) 0.2 10 ^3/uL (0-0.8); Hemoglobin 13.1 g/dL (13.5-17.5); Lymphocytes # (auto) 1.9 10 ^3/uL (0.4-5.4); Lymphocytes % (auto) 16.2 % (10.0-50.0); Mean Corpuscular Hemoglobin 28.9 pg (28.0-32.0); Mean Corpuscular Hgb Conc. 33.7 g/dL (32.0-36.0); Mean Corpuscular Volume 85.8 fL (80.0-100.0); Monocytes # (auto) 1.1 10 ^3/uL (0-1.3); Monocytes % (auto) 9.4 % (0.0-12.0); Neutrophils # (auto) 8.3 10 ^3/uL (1.6-8.6); Neutrophils % (auto) 71.8 % (37.0-80.0); Nucleated Red Blood Cells % 0.2 %; Platelet Count (auto) 348 10^3/uL (140-450); Red Blood Cells 4.55 10^6/uL (4.5-5.90); Red Cell Distribution Width 13.8 % (11.8-14.3); White Blood Cell 11.6 10^3/uL (4.4-10.8)
[2024-04-08 09:18] VITALS: BP 117/65; PULSE 59; RESP 17; TEMP 98.6; O2SAT 100
--- NOTE | 2024-04-08 12:13 | DVHPN2 ---
Reviewed: Care Plan, H&P, Labs Changes from previous H/P or p: No Changes General: Per HPI Objective Vitals Vital Signs Date Time Temp Pulse Resp B/P (MAP) Pulse Ox O2 Delivery O2 Flow Rate FiO2 04/08/24 09:18 98.6 59 17 117/65 (82) 100 98.6 04/08/24 08:02 Room Air* 0 21 Intake/Output Intake and Output 04/08/24 07:00 Intake Total 2400 ml Balance 2400 ml Intake Oral 1400 ml IV Total 1000 ml # Voids 7 # Bowel Movements 2 General Appearance: Alert, Oriented X3, Cooperative, mild distress HEENT: Atraumatic, PERRLA Lungs: Clear to auscultation, Normal air movement Cardiovascular: Normal S1, Normal S2 Abdomen: Normal bowel sounds, Soft, No tenderness, No hepatospenomegaly Musculoskeletal: Normal sensory function, Normal motor function Extremities: No clubbing, No cyanosis, Other (Severe swelling and tenderness to right upper extremity) Neuro: Normal gait, Normal speech Psych/Mental Status: Mental status NL, Mood NL Medications Current Medications Medications Dose Ordered Sig/Becky Route Start Time Stop Time Status Last Admin Dose Admin Vancomycin HCl 0 ml @ 0 mls/hr UD IV 04/06/24 11:00 Vancomycin HCl 200 ml @ 200 mls/hr Q8H IV 04/06/24 20:00 04/08/24 03:48 200 MLS/HR Ampicillin Sodium/ Sulbactam Sodium 3 gm/Sodium Chloride 100 ml @ 100 mls/hr Q6H IV 04/06/24 15:00 04/08/24 08:41 100 MLS/HR Morphine Sulfate 1 mg Q4HPRN PRN IV 04/06/24 14:45 04/07/24 21:38 1 MG Acetaminophen/ Hydrocodone Bitart 1 tab Q6HPRN PRN PO 04/06/24 14:45 Acetaminophen 500 mg Q8HP PRN PO 04/06/24 14:45 Ondansetron HCl 4 mg Q6HP PRN IV 04/06/24 14:45 Docusate Sodium 100 mg BID PRN PO 04/06/24 14:45 Nitroglycerin 0.4 mg Q5MINP PRN SL 04/06/24 14:45 Morphine Sulfate 2 mg Q30M PRN IV 04/06/24 14:45 Pantoprazole Sodium 40 mg DAILY@0600 PO 04/07/24 06:00 04/08/24 05:16 40 MG Laboratory Results Laboratory Tests 04/08/24 05:35 Chemistry Test 04/08/24 05:35 Calcium Level 9.4 mg/dL (8.7-10.4) Microbiology Microbiology Date/Time Source Procedure Growth Status 04/06/24 12:41 Blood Blood Culture - Preliminary NO GROWTH AFTER 24 HOURS OF INCUBATION. Resulted Labs and/or images reviewed: Labs reviewed by me, Image(s) reviewed by me Assessment/Plan Assessment/Plan For nurse practitioner Roderick Armas Sepsis secondary to cellulitis -cellulitis right upper extremity : Continue vancomycin and Unasyn -polysubstance abuse: Tobacco, methamphetamines :counseling -rule out endocarditis DVT right upper extremity ruled out Osteomyelitis right upper extremity ruled out Echocardiogram normal with 70 percent ejection fraction no vegetations Plan discussed with: Patient Date of Service: Apr 08, 2024 Billing Provider: SERVANDO PERLA MD Common Visit Codes: [id number] INP/OBS CARE(HIGH) SERVANDO PERLA MD Apr 08, 2024 12:13
[2024-04-08 16:58] VITALS: BP 122/68; PULSE 80; RESP 17; TEMP 98.2; O2SAT 99
[2024-04-08 20:00] VITALS: PULSE 89; RESP 18
[2024-04-08 21:00] VITALS: BP 133/78; PULSE 92; RESP 20; TEMP 98.2; O2SAT 97
[2024-04-09] VITALS (8 sets, daily range): BP systolic 121–138; BP diastolic 68–84; PULSE 65–86; RESP 16–20; TEMP 97.3–98.4; O2SAT 94–100
[2024-04-09 06:40] LABS: Basophils # (auto) 0.1 10 ^3/uL (0-0.2); Basophils % (auto) 0.9 % (0.0-2.0); Eosinophils # (auto) 0.3 10 ^3/uL (0-0.8); Eosinophils % (auto) 3.1 % (0.0-7.0); Hematocrit 39.7 % (41.0-53.0); Hemoglobin 13.3 g/dL (13.5-17.5); Lymphocytes % (auto) 19.4 % (10.0-50.0); Mean Corpuscular Hemoglobin 28.6 pg (28.0-32.0); Mean Corpuscular Hgb Conc. 33.4 g/dL (32.0-36.0); Mean Corpuscular Volume 85.6 fL (80.0-100.0); Monocytes # (auto) 0.9 10 ^3/uL (0-1.3); Monocytes % (auto) 8.5 % (0.0-12.0); Neutrophils # (auto) 6.9 10 ^3/uL (1.6-8.6); Neutrophils % (auto) 68.1 % (37.0-80.0); Nucleated Red Blood Cells % 0.1 %; Platelet Count (auto) 366 10^3/uL (140-450); Red Blood Cells 4.63 10^6/uL (4.5-5.90); Red Cell Distribution Width 13.5 % (11.8-14.3); White Blood Cell 10.2 10^3/uL (4.4-10.8)
--- NOTE | 2024-04-09 09:24 | DVHPN2 ---
Reviewed: Care Plan, H&P, Labs Changes from previous H/P or p: No Changes General: Per HPI Objective Vitals Vital Signs Date Time Temp Pulse Resp B/P (MAP) Pulse Ox O2 Delivery O2 Flow Rate FiO2 04/09/24 05:00 98.3 71 20 128/68 (88) 97 98.3 04/08/24 20:00 Room Air* 0 21 Intake/Output Intake and Output 04/09/24 07:00 Intake Total 1800 ml Balance 1800 ml Intake Oral 900 ml IV Total 900 ml # Voids 6 General Appearance: Alert, Oriented X3, Cooperative, mild distress HEENT: Atraumatic, PERRLA Lungs: Clear to auscultation, Normal air movement Cardiovascular: Normal S1, Normal S2 Abdomen: Normal bowel sounds, Soft, No tenderness, No hepatospenomegaly Musculoskeletal: Normal sensory function, Normal motor function Extremities: No clubbing, No cyanosis, Other (Severe swelling and tenderness to right upper extremity) Neuro: Normal gait, Normal speech Psych/Mental Status: Mental status NL, Mood NL Medications Current Medications Medications Dose Ordered Sig/Becky Route Start Time Stop Time Status Last Admin Dose Admin Vancomycin HCl 0 ml @ 0 mls/hr UD IV 04/06/24 11:00 Vancomycin HCl 200 ml @ 200 mls/hr Q8H IV 04/06/24 20:00 04/09/24 03:58 200 MLS/HR Ampicillin Sodium/ Sulbactam Sodium 3 gm/Sodium Chloride 100 ml @ 100 mls/hr Q6H IV 04/06/24 15:00 04/09/24 02:34 100 MLS/HR Morphine Sulfate 1 mg Q4HPRN PRN IV 04/06/24 14:45 04/08/24 20:12 1 MG Acetaminophen/ Hydrocodone Bitart 1 tab Q6HPRN PRN PO 04/06/24 14:45 Acetaminophen 500 mg Q8HP PRN PO 04/06/24 14:45 Ondansetron HCl 4 mg Q6HP PRN IV 04/06/24 14:45 Docusate Sodium 100 mg BID PRN PO 04/06/24 14:45 Nitroglycerin 0.4 mg Q5MINP PRN SL 04/06/24 14:45 Morphine Sulfate 2 mg Q30M PRN IV 04/06/24 14:45 Pantoprazole Sodium 40 mg DAILY@0600 PO 04/07/24 06:00 04/09/24 05:09 40 MG Laboratory Results Laboratory Tests 04/08/24 05:35 04/09/24 05:45 Microbiology Microbiology Date/Time Source Procedure Growth Status 04/06/24 12:41 Blood Blood Culture - Preliminary NO GROWTH AFTER 48 HOURS OF INCUBATION. Resulted Labs and/or images reviewed: Labs reviewed by me, Image(s) reviewed by me Assessment/Plan Assessment/Plan Covering For nurse practitioner Roderick Armas Sepsis secondary to cellulitis -cellulitis right upper extremity : Continue vancomycin and Unasyn -polysubstance abuse: Tobacco, methamphetamines :counseling Endocarditis ruled out DVT right upper extremity ruled out Osteomyelitis right upper extremity ruled out Echocardiogram normal with 70 percent ejection fraction no vegetations Plan discussed with: Patient Date of Service: Apr 09, 2024 Billing Provider: SERVANDO PERLA MD Common Visit Codes: [id number] INP/OBS CARE(HIGH) SERVANDO PERLA MD Apr 09, 2024 09:24
[2024-04-10 05:00] VITALS: BP 157/101; PULSE 78; RESP 17; TEMP 97.2; O2SAT 100
[2024-04-10 08:00] VITALS: PULSE 64; RESP 17; O2SAT 100
[2024-04-10 09:00] VITALS: BP 132/81; PULSE 64; RESP 17; TEMP 98.6; O2SAT 100
[2024-04-10] MEDS ORDERED: BACDST PO (11:20)
--- NOTE | 2024-04-10 11:28 | DVHDS2 ---
Discharge Summary Date of Admission Apr 06, 2024 at 14:37 Date of Discharge: Apr 10, 2024 Admitting Diagnosis Right hand cellulitis Labs/Diagnostic Data: Laboratory Results Test 04/10/24 02:42 04/09/24 05:45 04/08/24 05:35 04/07/24 11:30 Vancomycin Level Trough 16.8 ug/mL (5-10) White Blood Count 10.2 10^3/uL (4.4-10.8) Red Blood Count 4.63 10^6/uL (4.5-5.90) Hemoglobin 13.3 g/dL (13.5-17.5) Hematocrit 39.7 % (41.0-53.0) Mean Corpuscular Volume 85.6 fL (80.0-100.0) Mean Corpuscular Hemoglobin 28.6 pg (28.0-32.0) Mean Corpuscular Hemoglobin Concent 33.4 g/dL (32.0-36.0) Red Cell Distribution Width 13.5 % (11.8-14.3) Platelet Count 366 10^3/uL (140-450) Mean Platelet Volume 7.2 fL (6.9-10.8) Neutrophils (%) (Auto) 68.1 % (37.0-80.0) Lymphocytes (%) (Auto) 19.4 % (10.0-50.0) Monocytes (%) (Auto) 8.5 % (0.0-12.0) Eosinophils (%) (Auto) 3.1 % (0.0-7.0) Basophils (%) (Auto) 0.9 % (0.0-2.0) Neutrophils # (Auto) 6.9 10 ^3/uL (1.6-8.6) Lymphocytes # (Auto) 2.0 10 ^3/uL (0.4-5.4) Monocytes # (Auto) 0.9 10 ^3/uL (0-1.3) Eosinophils # (Auto) 0.3 10 ^3/uL (0-0.8) Basophils # (Auto) 0.1 10 ^3/uL (0-0.2) Nucleated Red Blood Cells 0.1 % Creatinine 0.73 mg/dL (0.700-1.30) Glomerular Filtration Rate Calc 116 mL/min (>90) Sodium Level 138 mmol/L (136-145) Potassium Level 4.0 mmol/L (3.5-5.1) Chloride Level 107 mmol/L (98-107) Carbon Dioxide Level 24 mmol/L (20-31) Anion Gap 7 (5-15) Blood Urea Nitrogen 10 mg/dL (9-23) BUN/Creatinine Ratio 12.8 (10.0-20.0) Serum Glucose 106 mg/dL (74-106) Calcium Level 9.4 mg/dL (8.7-10.4) Hepatitis B Surface Antigen Negative (Negative) Test 04/07/24 05:33 04/06/24 10:55 Urine Opiates Screen Neg (NEGATIVE) Urine Fentanyl Screen Pos (NEGATIVE) Urine Barbiturates Screen Neg (NEGATIVE) Urine Phencyclidine Screen Neg (NEGATIVE) Urine Amphetamines Screen Pos (NEGATIVE) Urine Benzodiazepines Screen Neg (NEGATIVE) Urine Cocaine Screen Neg (NEGATIVE) Urine Cannabinoids Screen Neg (NEGATIVE) Erythrocyte Sedimentation Rate 15 mm/hr (0-20) Lactic Acid Level 0.6 mmol/L (0.4-2.0) Total Bilirubin 0.5 mg/dL (0.2-1.0) Aspartate Amino Transferase (AST) 19 U/L (13-40) Alanine Aminotransferase (ALT) 31 U/L (7-40) Alkaline Phosphatase 78 U/L (46-116) C-Reactive Protein High Sensitivity 3.23 mg/dL (<1.0) Total Protein 7.5 g/dL (5.7-8.2) Albumin 4.5 g/dL (3.2-4.8) Other Laboratory Tests 04/09/24 05:45 04/08/24 05:35 Brief Hx & Hospital Course: History of Present Illness The patient is a 43-year-old male, presenting to the emergency room with right arm pain and swelling. Apparently, the patient uses IV drug use, and has been injecting into his right hand. Patient denies having any fevers, chills, body aches. Patient continues to leave the emergency room to smoke outside. Significant history includes methamphetamine and tobacco use. Course of hospitalization: Patient was started on antibiotic therapy with vancomycin and Unasyn. Echocardiogram was performed which ruled out endocarditis. Patient was white blood cell count improved. Right hand is no longer swollen with erythema resolving. No drainage noted. Patient was agreeable to be discharged home. He will be continued on antibiotic therapy with Bactrim DS one tablet twice a day for seven days. He will follow up with the discharge Clinic in one week. He was also instructed to abstain from illicit drug use. All questions answered. Physical exam General: Alert and Oriented x3. No acute distress. Well-nourished. Eyes: EOMI. Anicteric. HENT: Moist mucous membranes. Lungs: Clear to auscultation bilaterally. No accessory muscle use. Cardiovascular: Regular rate and rhythm. No murmur. No JVD. Abdomen: Soft, non-tender and non-distended. No palpable masses. Extremities: No edema. Non-tender. Skin: No rashes or lesions. Warm. Neurologic: No focal neurological deficits. CN II-XII grossly intact, but not individually tested. Psychiatric: Cooperative. Appropriate mood and affect. Total time spent with patient discussing and formulating plan of care: 35 minutes. This medical document was created using an electronic medical record system with [employer] dictation system. Although this document has been carefully reviewed, there may still be some phonetic and typographical errors. These areas are purely typographical due to imperfections of the software programs, and do not reflect any compromise in the patient's medical care. Condition at Discharge: Fair Final Diagnosis/Problems List Cellulitis right hand Secondary Diagnosis: -probable sepsis , ruled out -cellulitis right upper extremity -polysubstance abuse: Tobacco, methamphetamines -ruled out endocarditis Discharge Disposition: Home Discharge Instruct/Medications Diet: Regular Activity: No Restrictions, As Tolerated Follow Up/Referral: Discharge Clinic in one week if unable to see PCP in 1-2 weeks. Medications: Bactrim DS one tablet twice a day x7 days 36 Discharge Statement: "Patient was advised to return to the ER or call 911 if any headaches, dizziness, shortness of breath, chest pain, abdominal pain, bleeding, fevers, or worsening of medical condition. Patient was counseled about treatment plan, medications, possible side effects, patientverbalized understanding. All questions were answered to the best of my ability. This discharge took greater then 30 minutes in planning, reviewing documentation, counseling the patient, and discussing with other team members." ASSESSMENT ASSESSMENT Assessment Cellulitis right hand Date of Service: Apr 10, 2024 Billing Provider: DANIS BOWMAN NP Common Visit Codes: [id number] DISCH DAY >30min DANIS BOWMAN NP Apr 10, 2024 11:27
[2024-04-10 13:23] VITALS: BP 141/79; PULSE 54; RESP 17; TEMP 98.6; O2SAT 94
[2024-04-10] MEDS: SULFAMETHOX W/TRIMETH(800/160MG) DS TAB PO ONE (14:01)
== END 2024-04-10 14:20 | disposition home or self-care (01) | DRG 383 ==
LOC: ER 10:21 → TELE 14:37 → TELE-E-ADS 21:22 → TELE-EAST 04-09 20:04 → EAST 04-10 01:43
PROVIDERS: ADMIT Nurse Practitioner Acute Care; ATTEND Nurse Practitioner Acute Care
DX: L03.113 Cellulitis of right upper limb (principal); F17.210 Nicotine dependence, cigarettes, uncomplicated; F19.90 Other psychoactive substance use, unspecified, uncomplicated
CPT/HCPCS: 36415; 73201; 80048; 80053; 80202; 80307; 82565; 83605; 85025; 85652; 86141; 87040; 87340; 93306; 93971; 96365; 99291; G0378; J2543